=== PATIENT | female | born 1985 | race Asian ===

== ENCOUNTER 2021-12-16 07:15 | Day surgery (SDC) | payer BC, SELFPAY ==
[2021-12-15 12:31] LABS: HCG,QUAL RESULT NEGATIVE (NEGATIVE)
[2021-12-15 12:53] LABS: BASOPHILS # (AUTO) 0.1 K/uL (0.0-0.2); BASOPHILS % (AUTO) 0.8 % (0.0-2.0); EOSINOPHILS # (AUTO) 0.2 K/uL (0.0-0.4); EOSINOPHILS % (AUTO) 2.7 % (0.0-4.0); HEMATOCRIT 31.9 % (36-48); HEMOGLOBIN 10.1 g/dL (12.0-16.0); LYMPHOCYTES # (AUTO) 2.2 K/uL (1.0-5.5); LYMPHOCYTES % (AUTO) 27.9 % (20.5-51.5); MEAN CORPUSCULAR HEMOGLOBIN 28 pg (27-31); MEAN CORPUSCULAR HGB CONC 32 % (32-36); MONOCYTES # (AUTO) 0.6 K/uL (0.0-1.0); MONOCYTES % (AUTO) 7.5 % (1.7-9.3); NEUTROPHILS # (AUTO) 4.8 K/uL (1.8-7.7); NEUTROPHILS % (AUTO) 61.1 % (40.0-70.0); PLATELET COUNT (AUTO) 402 K/uL (130-430); RED BLOOD CELL COUNT(AUTO) 3.61 MIL/uL (4.2-6.2); RED CELL DISTRIBUTION WIDTH 26.6 % (9.0-15.0); WHITE BLOOD COUNT (AUTO) 7.9 K/uL (4.8-10.8)
[2021-12-15 12:59] LABS: MEAN CORPUSCULAR VOLUME 88 fL (79.0-98.0)
[2021-12-15 13:14] LABS: CALCIUM 8.2 mg/dL (8.4-11.0); CREATININE 0.59 mg/dL (0.55-1.30); POTASSIUM 3.6 mmol/L (3.5-5.1)
[2021-12-15 13:29] LABS: INR 0.9 (0.8-1.2); PROTHROMBIN TIME 9.9 SECS (9.5-12.5)
[~2021-12-16] VITALS: Ht 154.9 cm; Wt 95.3 kg
[2021-12-16] MEDS ORDERED: PROPOFOL 200MG/ 20ML VIAL (DIPRIVAN) IV ONE (09:09)
[2021-12-16] MEDS ORDERED: fentaNYL CITRATE 250 MCG/5 ML AMP ONE (09:09)
[2021-12-16] MEDS ORDERED: LR 1,000 ML IV.SOLN IV ONE (09:09)
[2021-12-16] MEDS ORDERED: ONDANSETRON HCL 4 MG/2 ML VIAL ONE (09:09)
[2021-12-16] MEDS ORDERED: DEXAMETHASONE SOD PHOSPHATE 4 MG/ML VIAL ONE (09:09)
[2021-12-16] MEDS ORDERED: KETOROLAC TROMETHAMINE 30 MG VIAL ONE (09:09)
[2021-12-16] MEDS ORDERED: DESFLURANE 15 MIN GAS INH ONE (09:09)
[2021-12-16] MEDS ORDERED: NS IRRIG SOLN 1000 ML IR ONE (09:09)
[2021-12-16] MEDS ORDERED: METOCLOPRAMIDE HCL 10 MG/2 ML VIAL IVP PRN (09:30)
[2021-12-16] MEDS ORDERED: HYDROmorphone 1 MG/ML INJ. CARTRIDGE IVP PRN ×2 (09:30)
[2021-12-16] MEDS ORDERED: ONDANSETRON HCL 4 MG/2 ML VIAL IM PRN (10:00)
[2021-12-16] MEDS ORDERED: OXYCODONE/ACETAMINOPHEN 5-325 TABLET PO PRN ×2 (10:00)
[2021-12-16] MEDS ORDERED: IBUPROFEN 800 MG TABLET PO PRN (10:00)
[2021-12-16 11:31] VITALS: BP_SYST 118
== END 2021-12-16 11:25 | disposition home or self-care (01) ==
LOC: SDS 07:15 → SMU 07:16 → SDS 11:25
PROVIDERS: ATTEND Obstetrics & Gynecology
DX: N93.9 Abnormal uterine and vaginal bleeding, unspecified (principal); E66.01 Morbid (severe) obesity due to excess calories; Z68.41 Body mass index [BMI] 40.0-44.9, adult; Z79.899 Other long term (current) drug therapy; Z20.822 Contact with and (suspected) exposure to COVID-19; Z79.01 Long term (current) use of anticoagulants
CPT/HCPCS: 36415; 58558; 80048; 84703; 85025; 85610; 85730; 86886; 86900; 86901; 87086; 87426; 88305; C1819; J1100; J1885; J2405; J2704; J3010; J7120